=== PATIENT | female | born 1945 | race Caucasian/White ===

== ENCOUNTER → 2024-09-19 09:02 | Outpatient (CLI) | payer OTHER, SELFPAY ==
[2024-09-19 09:37] LABS: Hemoglobin A1C% w Est Avg Glu 5.8 % (4.0-6.0)
[2024-09-19 09:55] LABS: Alanine Aminotransferase 26 IU/L (<35); Albumin 4.6 g/dL (3.5-5.0); Albumin Globulin Ratio 1.6 (1.0-2.8); Alkaline Phosphatase 65 U/L (38-126); Blood Urea Nitrogen 17 mg/dL (7-17); Calcium 10.0 mg/dL (8.4-10.2); Carbon Dioxide 28 mmol/L (22-32); Chloride 104 mmol/L (98-107); Cholesterol 254 mg/dL (140-199); Estimated Glomerular Filt Rate > 60 mL/min (>60); Globulin 2.8 g/dL (1.7-4.1); Glucose 98 mg/dL (70-99); HDL Cholesterol 40 mg/dL (40-60); HEMOLYSIS < 15 (0-50); Potassium 4.2 mmol/L (3.4-5.1); Sodium 141 mmol/L (137-145); Total Protein 7.4 g/dL (6.3-8.2); Triglycerides 277 mg/dL (35-150)
[2024-09-19 10:39] LABS: Hep C Virus Ab w/Reflex Quant NEGATIVE s/c (NEGATIVE)
== END ==
PROVIDERS: PCP Family Medicine; Referring Provider Family Medicine; Visit Provider Family Medicine
DX: R79.89 Other specified abnormal findings of blood chemistry (principal); E78.5 Hyperlipidemia, unspecified; Z13.1 Encounter for screening for diabetes mellitus; Z11.59 Encounter for screening for other viral diseases
CPT/HCPCS: 36415; 80053; 80061; 83036; 86803

== ENCOUNTER → 2024-12-20 13:16 | Outpatient (CLI) | payer OTHER, MEDICAID, SELFPAY ==
--- NOTE | 2024-12-27 17:56 | DI.NM.S_ITS ---
DATE OF SERVICE: 12/20/2024 NUCLEAR CARDIOLOGY MYOCARDIAL PERFUSION STUDY PROCEDURE: Vasodilator stress and rest myocardial perfusion imaging with gating to assess ejection fraction and regional wall motion. ORDERING PROVIDER: Tran Hardwick M.D. INDICATIONS: The patient is a 79-year-old female with severe hyperlipidemia and atypical chest discomfort. CARDIAC STRESS: Per protocol, 0.4 mg of regadenoson was infused with subsequent minimal dyspnea but no chest discomfort, and a fairly normal hemodynamic response of the regadenoson. Her resting ECG shows sinus rhythm with slight, nonspecific ST-segment abnormalities. With stress, there are no significant ST-segment shifts or arrhythmias. Per protocol, 25.7 millicuries of technetium-99m Myoview was injected and she was imaged 15 minutes later using a gated SPECT acquisition protocol. She returned 7 days later and at rest injected with an additional 24.0 millicuries of technetium-99m Myoview and imaged 15 minutes later, again using a gated SPECT acquisition protocol. FINDINGS: 1. Raw data: There is fairly poor myocardial tracer uptake compared to the subdiaphragmatic structures and specifically very prominent tracer activity in the liver silhouette, possibly reflecting the gallbladder and his clearly complicates the interpretation. The lung/heart ratio is normal at 0.31 with a normal TID ratio of 0.65. 2. Quantitated gated SPECT: Post-stress ejection fraction is 84% without any focal wall motion abnormality and specifically the inferior wall appears to have normal contractility. The resting ejection fraction is 79% with a normal resting end-diastolic volume of 73 mL. 3. Myocardial perfusion imaging: Post-stress supine images are very compromised by the subdiaphragmatic tracer activity but there appears to be a perfusion defect in the proximal and mid inferior wall, extending slightly into the distal inferior wall. The prone images show a similar perfusion pattern with significantly reduced tracer activity throughout the inferior wall, suggesting this could reflect a true perfusion defect. The resting images continued to show an inferior perfusion defect, although with some apparent improvement, particularly in the proximal segments. IMPRESSION: 1. Probable abnormal myocardial perfusion study but with significantly reduced specificity because of poor image quality from abundant subdiaphragmatic and hepatic tracer activity. 2. Partially reversible inferior perfusion defect that persists on the prone images and partially improves proximally on the resting images. At face value, this would suggest a previous myocardial infarction with moderate mariah-infarct ischemia proximally but with markedly reduced specificity because of the artifacts mentioned above. The absence of any wall motion abnormality in this distribution would further support the possibility the defect reflects an attenuation artifact. Clinical correlation is recommended with consideration for additional imaging studies, if indicated. 3. Normal left ventricular size and systolic function without any focal wall motion abnormality. 4. No angina or ECG evidence of ischemia with pharmacologic vasodilator stress. There were no arrhythmias. Marah Gonzalez - RS/fn/CORPORATE DIRECTOR OF HUMAN RESOURCES doc#: [id number]/job#: [id number] dd: 12/27/2024 16:56:00 dt: 12/27/2024 17:39:00 DICTATING MD/COPIES TO: Marko Willson MD; Tran Hardwick M.D. COPIES MNE: MATTHEW;
== END ==
PROVIDERS: PCP Family Medicine; Referring Provider Family Medicine; Visit Provider Internal Medicine Cardiovascular Disease
DX: R07.89 Other chest pain (principal); E78.5 Hyperlipidemia, unspecified
CPT/HCPCS: 78452; 93017; A9502; J2785

== ENCOUNTER → 2025-02-05 09:46 | Outpatient (CLI) | payer OTHER, MEDICAID, SELFPAY ==
[2025-02-05 10:34] LABS: Hemoglobin A1C% w Est Avg Glu 5.7 % (4.0-6.0)
[2025-02-05 10:46] LABS: Cholesterol 158 mg/dL (140-199); HDL Cholesterol 51 mg/dL (40-60); Triglycerides 229 mg/dL (35-150)
== END ==
PROVIDERS: PCP Family Medicine; Referring Provider Family Medicine; Visit Provider Family Medicine
DX: E78.5 Hyperlipidemia, unspecified (principal); R73.03 Prediabetes; I10 Essential (primary) hypertension
CPT/HCPCS: 36415; 80061; 83036